=== PATIENT | male | born 2000 | race Caucasian/White ===

== ENCOUNTER 2024-03-22 01:02 | Emergency (ER) | payer OTHER ==
[2024-03-22 01:15] VITALS: RESP 18; TEMP 96.9
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
[2024-03-22 02:12] LABS: Absolute Neutrophil Ct (ANC) 5.86 x10^3/uL (1.78-5.38); BASOPHIL % 0.4 % (0.2-1.2); Basophil (Absolute #) 0.04 x10^3/uL (0.01-0.08); Eosinophil % 4.1 % (0.8-7.0); Eosinophil (Absolute #) 0.39 x10^3/uL (0.04-0.54); Hematocrit 44.1 % (40.1-51.0); Hemoglobin 15.4 g/dL (13.7-17.5); IMMATURE GRAN # 0.05 x10^3u/L (0.001-0.031); IMMATURE GRAN % 0.5 % (0.001-0.429); Lymphocytes % 27.5 % (21.8-53.1); Mean Cell Volume 84.6 fL (79.0-92.2); Mean Corpuscular Hemoglobin 29.6 pg (25.7-32.2); Mean Corpuscular Hgb Concent. 34.9 g/dL (32.3-36.5); Mean Platelet Volume 9.1 fL (9.4-12.4); Monocyte (Absolute #) 0.52 x10^3/uL (0.30-0.82); Monocytes % 5.5 % (5.3-12.2); Platelet Count 228 x10^3/uL (163-337); Red Blood Count 5.21 x10^6/uL (4.63-6.08); Red Cell Distribution Width 11.8 % (11.6-14.4); White Blood Count 9.5 x10^3/uL (4.23-9.07)
[2024-03-22 02:25] LABS: ALBUMIN 4.2 g/dL (3.5-5.0); ANION GAP 14.1 MEQ/L (5-15); BILIRUBIN,TOTAL 0.3 mg/dL (0.2-1.3); Calcium 9.5 mg/dL (8.4-10.2); Creatinine 1 1.45 mg/dL (0.66-1.25); EST GLOMERULAR FILTRATION RATE 69.4 ML/MIN; Potassium 4.3 mmol/L (3.5-5.1); Total Protein 7.2 g/dL (6.3-8.2)
[2024-03-22 02:49] LABS: HIV 1/2 ANTIBODY PRESUMPTIVE NEGATIVE (NEGATIVE); HIV p24 AG - SOURCE ONLY PRESUMPTIVE NEGATIVE (NEGATIVE)
[2024-03-22 04:02] VITALS: BP 124/62; PULSE 58; O2SAT 99
[2024-03-23 06:09] LABS: HBsAg Screen Negative (Negative); HCV Ab Non Reactive (Non Reactive); Hep B Core Ab, IgM Negative (Negative); RPR Non Reactive (Non Reactive)
[2024-03-23 07:23] LABS: HIV Screen 4th Generation wRfx Non Reactive (Non Reactive); Hep A Ab, IgM Negative (Negative)
== END 2024-03-22 04:03 | disposition home or self-care (01) ==
LOC: ED 01:02
DX: Z20.6 Contact with and (suspected) exposure to human immunodeficiency virus [HIV] (principal); R79.89 Other specified abnormal findings of blood chemistry
CPT/HCPCS: 36415; 80053; 80074; 85025; 86592; 86689; 87389; 99283